=== PATIENT | female | born 1985 | race Two or more races ===

== ENCOUNTER 2024-10-18 07:19 | Outpatient (CLI) | payer OTHER | END 2024-10-18 07:22 | disposition home or self-care (01) | LOC: NUCLEAR 07:19 | PROVIDERS: ATTEND Internal Medicine | DX: R06.01 Orthopnea (principal) ==

== ENCOUNTER 2024-10-26 11:00 | Inpatient (IN) | payer OTHER ==
[~2024-10-26] VITALS: Ht 170.2 cm; Wt 139.7 kg
[2024-10-26] MEDS ORDERED: PROTONIX40 MG PO (12:38)
[2024-10-26] MEDS ORDERED: IRO-PLEX LIQUI120 ML (12:40)
[2024-10-26] MEDS ORDERED: TIROSINT13 MCG (12:41)
[2024-10-26] MEDS ORDERED: MEGACE (12:42)
[2024-10-26 12:44] VITALS: BP 144/78
[2024-11-23 13:54] VITALS: BP 109/74
[2024-11-24 10:11] LABS: RH POSITIVE
[2024-11-24] MEDS ORDERED: METRONIDAZOLE/SODIUM CHLORIDE 500 MG/100 ML PIGGYBACK IV ONE (14:10)
[2024-11-24] MEDS ORDERED: CEFAZOLIN SODIUM 1,000 MG VIAL ONE (14:11)
[2024-11-24] MEDS ORDERED: POVIDONE-IODINE 118 ML BOTT TOP ONE (15:45)
[2024-11-24] MEDS ORDERED: VISTASEAL DUAL APPICATOR 1 EACH APPL TOP ONE (17:10)
[2024-11-24] MEDS ORDERED: THROMBIN,HU/FIBRINOGEN/CALCIUM 10 ML SYRINGE TOP ONE (17:10)
[2024-11-24] MEDS ORDERED: RINGERS SOLUTION,LACTATED 1,000 ML IV SCH (18:30)
[2024-11-24] MEDS ORDERED: MORPHINE SULFATE 4 MG/ML CARTRIDGE IV PRN (18:30)
[2024-11-24] MEDS ORDERED: KETOROLAC TROMETHAMINE 30 MG VIAL IV ONE (18:30)
[2024-11-24] MEDS ORDERED: SUGAMMADEX SODIUM 200 MG/2 ML VIAL IV ONE (18:34)
[2024-11-24] MEDS ORDERED: MORPHINE SULFATE 4 MG/ML VIAL IV ONE ×2 (19:25→19:55)
[2024-11-24] MEDS ORDERED: KETOROLAC TROMETHAMINE 30 MG VIAL ONE (19:42)
[2024-11-24] MEDS ORDERED: FAMOTIDINE/PF 20 MG/2 ML VIAL ONE (20:30)
[2024-11-24 20:58] LABS: HEMATOCRIT 38.5 % (36.0-45.00); HEMOGLOBIN 12.3 g/dL (12.0-15.00); MEAN CELL VOLUME 82.9 fL (80.00-100.00); MEAN CORPUSCULAR HEMOGLOBIN 26.5 pg (27.00-32.0); PLATELET COUNT 244 K/uL (150-450); RED BLOOD COUNT 4.64 M/uL (4.00-6.00)
[2024-11-24] MEDS ORDERED: CELECOXIB 200 MG CAPSULE PO SCH (21:00)
[2024-11-24] MEDS ORDERED: GABAPENTIN 300 MG CAPSULE PO SCH (21:00)
[2024-11-24] MEDS ORDERED: FAMOTIDINE/PF 20 MG/2 ML VIAL IV PUSH SCH (21:00)
[2024-11-24] MEDS ORDERED: SIMETHICONE 125 MG CAPSULE PO SCH (21:00)
[2024-11-24] MEDS ORDERED: DOCUSATE SODIUM 100MG CAP PO SCH (21:00)
[2024-11-24 21:08] VITALS: BP 144/78
[2024-11-24 21:21] LABS: ALBUMIN 3.4 gm/dL (3.4-5.0); CALCIUM 9.1 mg/dL (8.5-10.1); CREATININE SERUM 0.74 mg/dL (0.55-1.02); GFR 86.92; POTASSIUM 4.24 mEq/L (3.5-5.1)
[2024-11-25] MEDS ORDERED: ACETAMINOPHEN 500 MG GEL..CAP PO SCH
[2024-11-25 00:50] VITALS: BP 125/68
[2024-11-25] MEDS ORDERED: CEFAZOLIN SODIUM 1,000 MG VIAL IV SCH (01:00)
[2024-11-25] MEDS ORDERED: METOCLOPRAMIDE HCL 5 MG/ML VIAL IV SCH (01:00)
[2024-11-25 02:04] LABS: HEMATOCRIT 34.4 % (36.0-45.00); MEAN CELL VOLUME 82.3 fL (80.00-100.00); PLATELET COUNT 246 K/uL (150-450); RED BLOOD COUNT 4.18 M/uL (4.00-6.00); RED CELL DISTRIBUTION WIDTH 22.4 % (11.5-14.5)
[2024-11-25 02:14] LABS: HEMOGLOBIN 11.3 g/dL (12.0-15.00)
[2024-11-25 02:28] LABS: CALCIUM 8.8 mg/dL (8.5-10.1); CREATININE SERUM 0.62 mg/dL (0.55-1.02); GFR 106.61; PHOSPHOROUS 4.9 mg/dL (2.5-4.9); POTASSIUM 4.29 mEq/L (3.5-5.1)
[2024-11-25 08:00] VITALS: BP 111/57
[2024-11-25] MEDS ORDERED: ENOXAPARIN SODIUM 40 MG/0.4 ML SYRINGE SUBCUTANEO SCH (09:00)
== END 2024-11-25 12:17 | disposition home or self-care (01) | DRG 741 ==
LOC: O/R 11-24 06:45 → OB/GYN 11-24 11:00 → O/R 11-24 16:14 → OB/GYN 11-24 17:15
PROVIDERS: Obstetrics & Gynecology; ADMIT Obstetrics & Gynecology Gynecologic Oncology; ATTEND Obstetrics & Gynecology Gynecologic Oncology
PROC: 07BC4ZZ Excision of Pelvis Lymphatic, Percutaneous Endoscopic Approach (ICD-10-PCS; 2024-11-24)
PROC: 0UT24ZZ Resection of Bilateral Ovaries, Percutaneous Endoscopic Approach (ICD-10-PCS; 2024-11-24)
PROC: 0UT74ZZ Resection of Bilateral Fallopian Tubes, Percutaneous Endoscopic Approach (ICD-10-PCS; 2024-11-24)
PROC: 0UT94ZZ Resection of Uterus, Percutaneous Endoscopic Approach (ICD-10-PCS; principal; 2024-11-24 17:15)
DX: C54.1 Malignant neoplasm of endometrium (principal); N80.03 Adenomyosis of the uterus; N80.8 Other endometriosis